=== PATIENT | female | born 1985 | race Caucasian/White ===

== ENCOUNTER 2023-06-12 20:03 | Emergency (ER) | payer OTHER, SELFPAY ==
[2023-06-12 20:30] VITALS: BP 148/83; PULSE 99; TEMP 37; O2SAT 95; BMI 50.1
--- NOTE | 2023-06-12 20:41 | ED_ITS ---
HPI - Abdominal Pain General Chief Complaint: Abdominal Pain Stated Complaint: Constipation Time Seen by Provider: 06/12/23 20:17 Source: patient Mode of arrival: walk-in Limitations: no limitations History of Present Illness HPI narrative: This 37-year-old female presents for evaluation of constipation. She states she has not been able to have a normal bowel movement in approximately one week. She has generalized abdominal discomfort and rectal pressure. She did use some milk of magnesia earlier in the week with a small amount of to produce. She has not had any nausea or vomiting. Her appetite is been normal. She is not having any trouble urinating. She denies the possibility of . She is not on any GLP/Semiglutide weight loss medications or narcotic medications. She does admit that her appetite is poor and she eats a lot of fast food and at times forgets to eat at all. Related Data Home Medications ?Medication ?Instructions ?Recorded ?Confirmed No Known Home Medications 06/12/23 06/12/23 Allergies Allergy/AdvReac Type Severity Reaction Status Date / Time No Known Drug Allergies Allergy Verified 06/12/23 20:35 Review of Systems ROS Status of ROS 10 or more systems reviewed and unremark able except as noted in history and below Exam Narrative Exam Narrative: Nurses note and vital signs reviewed and patient is not hypoxic. Blood pressure is noted to be elevated at 140/83 and pulse is elevated at 99 General: Alert, nontoxic, overweight female resting comfortably on the stretcher, no respiratory distress Skin: Warm, dry, no pallor noted. There is no rash noted. Head: Normocephalic, atraumatic Eye: Normal conjunctiva, no drainage, EOMI. PERRL Ears, Nose, Mouth, and Throat: oral mucosa is moist. Cardiovascular: Regular Rate and [id number], no murmurs, rubs or gallops Respiratory: Patient is in no distress, no accessory muscle use, lungs are clear to auscultation, no wheezing, rales or rhonchi Back: non-tender, no CVA tenderness bilaterally to percussion. GI: Obese, soft, nondistended, generalized abdominal tenderness with no rebound guarding rigidity, rectal exam performed with RN at bedside, rectum is full of soft brown stool, Small, nonthrombosed external hemorrhoid noted at the 6 o'clock position, no internal hemorrhoids appreciated Musculoskeletal: The patient has no evidence of calf tenderness, no pitting edema, symmetrical pulses noted bilaterally Neurological: A&O x4, normal speech Psychiatric: Cooperative Constitutional Vital Signs, click to edit/add: Last Vital Signs Temp 98.6 F 06/12/23 20:30 Pulse 99 H 06/12/23 20:30 Resp 18 06/12/23 20:30 BP 148/83 H 06/12/23 20:30 Pulse Ox 95 06/12/23 20:30 O2 Del Method Room Air 06/12/23 20:30 Course Vital Signs Vital signs: Vital Signs Temperature 98.6 F 06/12/23 20:30 Pulse Rate 99 H 06/12/23 20:30 Respiratory Rate 18 06/12/23 20:30 Blood Pressure 148/83 H 06/12/23 20:30 Pulse Oximetry 95 06/12/23 20:30 Oxygen Delivery Method Room Air 06/12/23 20:30 Temperature 98.6 F 06/12/23 20:30 Pulse Rate 99 H 06/12/23 20:30 Respiratory Rate 18 06/12/23 20:30 Blood Pressure 148/83 H 06/12/23 20:30 Pulse Oximetry 95 06/12/23 20:30 Oxygen Delivery Method Room Air 06/12/23 20:30 MDM - Abdominal Pain MDM Narrative Medical decision making narrative: This 37-year-old female presents for evaluation of one week of constipation with generalized abdominal pain. She is not having any nausea or vomiting. She has no urinary symptoms. She had taken milk of magnesia once and was passing gas but not having any bowel movements. Her rectum was full of soft stool. They showed no signs of obstruction or ileus. Surgilube was placed into her rectum to loosen up the ball of stool in her rectal vault and she was given a soapsuds enema with clinical improvement. On reevaluation she states she is feeling better. I suggested that she use Metamucil or MiraLAX on a daily basis will be discharged home with a prescription for Colace and a note for work for today. Medical Records Medical records narrative: The [address] [address] XRay Report Signed Patient: JOHNNY LANGE MR#: [id number] : 1985 Acct:[id number] Age/Sex: 37 / F ADM Date: 06/12/23 Loc: ER Attending Dr: Ordering Physician: Glenna Cavazos Date of Service: 06/12/23 Procedure(s): XR acute abdomen series Accession Number(s): [id number] cc: Glenna Cavazos; Physician,Non-Staff Negro~ The [place] [id number] Patient Name: JOHNNY LANGE MRN: [facility]:[id number] date: 1985 Sex: F Assigned Patient Location: ER Current Patient Location: ER Accession/Order Number: [id number] Exam Date: 06/12/2023 21:20 Report Date: 06/12/2023 21:37 At the request of: GLENNA CAVAZOS Procedure: XR acute abdomen series EXAM: XR acute abdomen series HISTORY: constipation COMPARISON: None. TECHNIQUE: Upright PA chest x-ray. Supine and upright abdominal x-ray/KUB. FINDINGS: Chest x-ray demonstrates cardiac prominence without infiltrate, abnormal lung density or pleural effusion. Abdominal films without distention or evidence of ileus or obstruction. Moderate to large amount of colonic stool most prominent in each flank. No free air. No air-fluid level. No soft tissue calcification. XR/XR acute abdomen series IMPRESSION: Chest x-ray without acute disease. Abdominal films without ileus or obstruction. Moderate to large amount of colonic stool most prominent in each flank, correlate for constipation. Discharge Plan Discharge Stand Alone Forms: Portal Instructions Chief Complaint: Abdominal Pain Clinical Impression: Constipation Patient Disposition: Home, Self-Care Time of Disposition Decision: 23:40 Condition: Good Prescriptions / Home Meds: No Action No Known Home Medications Print Language: Kyrgyz Instructions: Constipation (ED), High Fiber Diet (ED) Referrals: Physician,Non-Staff, MD [Primary Care Provider] - 1 week
--- NOTE | 2023-06-12 20:46 | XR_ITS ---
The [address] [address] Patient Name: JOHNNY LANGE MRN: [id number] date: 1985 Sex: F Assigned Patient Location: ER Current Patient Location: ER Accession/Order Number: [id number] Exam Date: 06/12/2023 21:20 Report Date: 06/12/2023 21:37 At the request of: GLENNA MARKER Procedure: XR acute abdomen series EXAM: XR acute abdomen series HISTORY: constipation COMPARISON: None. TECHNIQUE: Upright PA chest x-ray. Supine and upright abdominal x-ray/KUB. FINDINGS: Chest x-ray demonstrates cardiac prominence without infiltrate, abnormal lung density or pleural effusion. Abdominal films without distention or evidence of ileus or obstruction. Moderate to large amount of colonic stool most prominent in each flank. No free air. No air-fluid level. No soft tissue calcification. XR/XR acute abdomen series IMPRESSION: Chest x-ray without acute disease. Abdominal films without ileus or obstruction. Moderate to large amount of colonic stool most prominent in each flank, correlate for constipation. Electronically authenticated by: GABRIEL DUNLAP Date: 06/12/2023 21:37
[2023-06-12 23:50] VITALS: BP 132/88; PULSE 97; O2SAT 97
== END 2023-06-12 23:50 | disposition home or self-care (01) ==
PROVIDERS: Emergency Provider Emergency Medicine
DX: K59.00 Constipation, unspecified (principal)
CPT/HCPCS: 74022; 99283

== ENCOUNTER 2023-06-15 17:05 | Emergency (ER) | payer OTHER, SELFPAY ==
[2023-06-15 17:08] VITALS: BP 165/100; PULSE 99; TEMP 37; O2SAT 95; BMI 36.0
--- NOTE | 2023-06-15 17:36 | ED_ITS ---
HPI - Abdominal Pain General Chief Complaint: Abdominal Pain Stated Complaint: CONSTIPATION/ABDOMINAL PAIN Time Seen by Provider: 06/15/23 17:15 Source: patient Mode of arrival: walk-in Limitations: no limitations History of Present Illness HPI narrative: The patient is being evaluated today for rectal bleeding that she noticed after she recently was treated for possible constipation with magnesium citrate, she m entioned that today she started having some liquid stool and when she was straining in the bathroom she felt some blood when she was wiping, the patient is denying any abdominal pain, the patient have no other concerns and she mentioned that the constipation started almost a week ago. Before that she usually have a regular bowel movement. No nausea no vomiting Related Data Previous Rx's ?Medication ?Instructions ?Recorded hydrocortisone acetate 25 mg 25 mg TN Q12H PRN hemorrhoids #12 06/15/23 rectal suppository (Anusol-HC) ea lidocaine 5 % topical cream 1 applic topical QID PRN rectal 06/15/23 (RectiCare) pain #15 grams Allergies Allergy/AdvReac Type Severity Reaction Status Date / Time No Known Drug Allergies Allergy Verified 06/12/23 20:35 Review of Systems ROS Status of ROS 10 or more systems reviewed and unremark able except as noted in history and below Exam Narrative Exam Narrative: Nurses notes and vital signs reviewed and patient is not hypoxic. General: Well-appearing and in no apparent distress. Skin: Warm, dry, no pallor noted. No rash. Head: Normocephalic, atraumatic. Neck: Supple, non-tender. Eye: Pupils are equal, round and EOMI. No scleral icterus. Ears, Nose, Mouth, and Throat: TM are clear, no nasal mucosal hypertrophy. Oral mucosa is moist, no posterior oropharynx erythema, uvula is mid-line Cardiovascular: Regular Rate and Rhythm without murmur, gallop or rub. Respiratory: No accessory muscle use or respiratory distress. Lungs are clear to auscultation, no wheezing, rales or rhonchi Chest Wall: no tenderness Back: No midline thoracic or lumbar vertebral tenderness. No CVA tenderness Musculoskeletal: normal ROM, no calf or popliteal tenderness, no lower extremity edema/swelling GI: Abdomen is soft, non-distended. Normal bowel sounds. The patient rectal examination showed that she have some external hemorrhoid at 6:00 that is inflamed but not bleeding there was old blood in the area but there is no active bleeding No masses appreciated. No tenderness to palpation. No rebound, guarding, or rigidity noted. Neurological: A&O x4. No cranial nerve dysfunction observed. No truncal ataxia. Moves all extremities. Sensation intact. Psychiatric: Cooperative and interactive. Normal mood and affect. Constitutional Vital Signs, click to edit/add: Last Vital Signs Temp 98.6 F 06/15/23 17:08 Pulse 99 H 06/15/23 17:08 Resp 22 H 06/15/23 17:08 BP 165/100 H 06/15/23 17:08 Pulse Ox 95 06/15/23 17:08 Course Vital Signs Vital signs: Vital Signs Temperature 98.6 F 06/15/23 17:08 Pulse Rate 99 H 06/15/23 17:08 Respiratory Rate 22 H 06/15/23 17:08 Blood Pressure 165/100 H 06/15/23 17:08 Pulse Oximetry 95 06/15/23 17:08 Temperature 98.6 F 06/15/23 17:08 Pulse Rate 99 H 06/15/23 17:08 Respiratory Rate 22 H 06/15/23 17:08 Blood Pressure 165/100 H 06/15/23 17:08 Pulse Oximetry 95 06/15/23 17:08 MDM - Abdominal Pain MDM Narrative Medical decision making narrative: The patient right now developed rectal bleeding mostly secondary to hemorrhoid and right now she was instructed to have local care with warm sitz bath in bren tion to Anusol and RectiCare. The patient to monitor her symptoms at home in case of increasing bleeding she is to come back to the ER. The patient was instructed about the proper hygiene while using the bathroom And the patient was instructed about the importance of warm sitz bath Patient referred to the primary care for follow-up and in case of any symptoms the patient to come back to the ER The patient is to follow up with primary care physician in next 2-3 days or to return to the emergency department should any of the signs or symptoms worsen or new symptoms develop. The patient agrees with the following Diagnosis and Treatment plan and the patient will be discharged home. Discharge Plan Discharge Stand Alone Forms: Portal Instructions Chief Complaint: Abdominal Pain Clinical Impression: Hemorrhoids Qualifiers: Hemorrhoid type: unspecified Qualified Code(s): K64.9 - Unspecified hemorrhoids Patient Disposition: Home, Self-Care Time of Disposition Decision: 17:39 Condition: Good Prescriptions / Home Meds: New hydrocortisone acetate [Anusol-HC] 25 mg suppository 25 mg TN Q12H PRN (Reason: hemorrhoids) Qty: 12 0RF lidocaine [RectiCare] 5 % cream 1 applic topical QID PRN (Reason: rectal pain ) Qty: 15 0RF Print Language: Albanian Instructions: Hemorrhoids (DC), Sitz Bath (DC) Referrals: Physician,Non-Staff, MD [Primary Care Provider] - 1 week
== END 2023-06-15 17:51 | disposition home or self-care (01) ==
PROVIDERS: Emergency Provider Emergency Medicine
DX: K64.9 Unspecified hemorrhoids (principal)
CPT/HCPCS: 99283

== ENCOUNTER 2023-06-16 06:37 | Emergency (ER) | payer OTHER, SELFPAY ==
[2023-06-16 06:39] VITALS: BP 154/109; PULSE 90; TEMP 36.8; O2SAT 96; BMI 36.0
[2023-06-16 07:30] LABS: Basophils Absolute Auto 0.1 10^3/uL (0.0-0.1); Basophils Percent Auto 0.7 % (0.2-2.0); Eosinophils Absolute Auto 0.3 10^3/uL (0.0-0.7); Eosinophils Percent Auto 1.9 % (0.9-7.0); Hematocrit 42.9 % (36.0-48.0); Hemoglobin 13.3 g/dL (12.0-16.0); Immature Granulocytes Abs Auto 0.05 10^3/uL (0.00-0.03); Immature Granulocytes Pct Auto 0.4 % (0.0-0.5); Lymphocytes Absolute Auto 3.1 10^3/uL (1.2-3.8); Lymphocytes Percent Auto 22.9 % (20.5-60.0); Mean Corpuscular Hemoglobin 28.4 pg (26.7-34.0); Mean Corpuscular Volume 91.7 fL (81.0-99.0); Mean Platelet Volume 10.9 fL (9.5-13.5); Monocytes Absolute Auto 1.3 10^3/uL (0.3-0.8); Monocytes Percent Auto 9.6 % (1.7-12.0); Neutrophils Absolute Auto 8.6 10^3/uL (1.4-6.5); Neutrophils Percent Auto 64.5 % (43.0-75.0); Platelet Count 339 10^3/uL (150-450); Red Blood Count 4.68 10^6/uL (4.20-5.40); Red Cell Distribution Width 13.7 % (11.0-15.0); White Blood Count 13.4 10^3/uL (4.0-11.0)
[2023-06-16 07:43] LABS: HCG Qualitative NEGATIVE (NEGATIVE)
[2023-06-16 07:47] LABS: Alanine Aminotransferase 36 U/L (14-59); Albumin Level 3.8 g/dL (3.4-5.0); Alkaline Phosphatase 89 U/L (46-116); Anion Gap 14.8; Aspartate Amino Transferase 22 U/L (15-37); BUN Creatinine Ratio 11.5; Bilirubin Total 0.7 mg/dL (0.2-1.0); Calcium 9.3 mg/dL (8.5-10.1); Chloride 101 mmol/L (98-107); Estimated GFR (African America >60 (>=60); Estimated GFR (Non-African Ame >60 (>=60); Globulin 3.8 g/dL; Glucose 116 mg/dL (74-106); Potassium 3.8 mmol/L (3.5-5.1); Sodium 141 mmol/L (136-145); Total Protein 7.6 g/dL (6.4-8.2)
--- NOTE | 2023-06-16 07:47 | CT_ITS ---
[address] [address] Patient Name: JOHNNY LANGE MRN: [id number] date: 1985 Sex: F Assigned Patient Location: ER Current Patient Location: ER Accession/Order Number: [id number] Exam Date: 06/16/2023 08:00 Report Date: 06/16/2023 08:37 At the request of: MADONNA PINEDA Procedure: CT abdomen pelvis wo con CT abdomen pelvis wo con, 06/16/2023 8:00 AM EDT INDICATION: Constipation COMPARISON: No prior CT the abdomen and pelvis available for comparison at the time of this dictation TECHNIQUE: Axial images of the abdomen and pelvis were obtained without IV contrast. Multiplanar reformatted images were generated and reviewed as needed. Dose reduction techniques were achieved by using automated exposure control and/or adjustment of mA and/or kV according to patient size and/or use of iterative reconstruction technique. FINDINGS: No consolidation or effusion. Diffuse fatty infiltration within an enlarged liver. Gallbladder, pancreas, spleen and adrenals unremarkable on a noncontrast scan. 2 mm nonobstructing left renal calculus. No hydronephrosis. No ureteral or urinary bladder calculi. Uterus and adnexa grossly unremarkable on a noncontrast scan. No aortic aneurysm. Small sliding hiatal hernia. No bowel obstruction. Normal appendix. Sigmoid diverticulosis. Large amount of stool distending the rectal vault with circumferential rectal wall thickening and mild perirectal fat stranding. Prominent perirectal lymph nodes, the largest 9 mm short axis. No pneumatosis or pneumoperitoneum. No acute fracture. CT/CT abdomen pelvis wo con IMPRESSION: 1. Mild proctitis with large amount of stool distending the rectal vault. Adjacent perirectal lymphadenopathy likely reactive lymph nodes; however, neoplastic process cannot be completely excluded. 2. Sigmoid diverticulosis 3. Nonobstructing left nephrolithiasis. 4. Hepatomegaly with diffuse hepatic steatosis. Electronically authenticated by: JOAN PAEZ Date: 06/16/2023 08:37
--- NOTE | 2023-06-16 08:09 | ED.GENADUL1 ---
HPI HPI - General Adult General Chief complaint: GI Bleed Stated complaint: RECTAL BLEEDING Time Seen by Provider: 06/16/23 07:03 Source: patient Mode of arrival: walk-in Limitations: no limitations History of Present Illness HPI narrative: The patient is coming to the ER to be evaluated for the same problem that she was evaluated for yesterday, she does have a history of constipation that he came for a earlier this week and then yesterday she mentioned that she started having bowel movement and she has some blood in stool after she already took the magnesium citrate, the patient is complaining that she is having tenderness in her rectal area and she feels like she need to go to the bathroom all the time but whenever she goes to the bathroom she is having pain, the patient was not able to fill the prescription yesterday because the pharmacy was closed , she still finds some blood when she wipes after going to the bathroom and she is not able to strain due to pain. Related Data Previous Rx's ?Medication ?Instructions ?Recorded hydrocortisone acetate 25 mg 25 mg GA Q12H PRN hemorrhoids #12 06/15/23 rectal suppository (Anusol-HC) ea lidocaine 5 % topical cream 1 applic topical QID PRN rectal 06/15/23 (RectiCare) pain #15 grams bisacodyl 5 mg tablet,delayed 5 mg PO DAILY PRN constipation #10 06/16/23 release (Dulcolax (bisacodyl)) tabs cephalexin 500 mg capsule 500 mg PO TID 7 days #21 caps 06/16/23 ibuprofen 800 mg tablet 800 mg PO TID PRN pain #20 tabs 06/16/23 Allergies Allergy/AdvReac Type Severity Reaction Status Date / Time No Known Drug Allergies Allergy Verified 06/16/23 06:39 Opioid HPI Opioid Management Most Recent Opioid Data: Last Pain Scale 7 06/16/23 08:11 Last ED Pain Assessment 06/12/23 20:39 Last MAR Pain Assessment 06/16/23 08:11 Review of Systems ROS Status of ROS 10 or more systems reviewed and unremarkable except as noted in history and below Exam Narrative Exam Narrative: Nurses notes and vital signs reviewed and patient is not hypoxic. General: Well-appearing and in no apparent distress. Skin: Warm, dry, no pallor noted. No rash. Head: Normocephalic, atraumatic. Neck: Supple, non-tender. Eye: Pupils are equal, round and EOMI. No scleral icterus. Ears, Nose, Mouth, and Throat: TM are clear, no nasal mucosal hypertrophy. Oral mucosa is moist, no posterior oropharynx erythema, uvula is mid-line Cardiovascular: Regular Rate and Rhythm without murmur, gallop or rub. Respiratory: No accessory muscle use or respiratory distress. Lungs are clear to auscultation, no wheezing, rales or rhonchi Chest Wall: no tenderness Back: No midline thoracic or lumbar vertebral tenderness. No CVA tenderness Musculoskeletal: normal ROM, no calf or popliteal tenderness, no lower extremity edema/swelling rectal exam : The patient have a small hemorrhoid at the 6:00 tender, rectal examination showed that the patient have no induration at the rectal verge but she does have maceration around the buttock area and there is stool that is liquid in the area too. GI: Abdomen is soft, non-distended. Normal bowel sounds. No masses appreciated. No tenderness to palpation. No rebound, guarding, or rigidity noted. Neurological: A&O x4. No cranial nerve dysfunction observed. No truncal ataxia. Moves all extremities. Sensation intact. Psychiatric: Cooperative and interactive. Normal mood and affect. Constitutional Vital Signs, click to edit/add: Last Vital Signs Temp 98.3 F 06/16/23 06:39 Pulse 90 06/16/23 06:39 Resp 18 06/16/23 06:39 BP 154/109 H 06/16/23 06:39 Pulse Ox 96 06/16/23 06:39 O2 Del Method Room Air 06/16/23 06:39 Course Vital Signs Vital signs: Vital Signs Temperature 98.3 F 06/16/23 06:39 Pulse Rate 90 06/16/23 06:39 Respiratory Rate 18 06/16/23 06:39 Blood Pressure 154/109 H 06/16/23 06:39 Pulse Oximetry 96 06/16/23 06:39 Oxygen Delivery Method Room Air 06/16/23 06:39 Temperature 98.3 F 06/16/23 06:39 Pulse Rate 90 06/16/23 06:39 Respiratory Rate 18 06/16/23 06:39 Blood Pressure 154/109 H 06/16/23 06:39 Pulse Oximetry 96 06/16/23 06:39 Oxygen Delivery Method Room Air 06/16/23 06:39 Medical Decision Making MDM Narrative Medical decision making narrative: The patient was not able to fill the prescription that she was provided with yesterday she also mentioned that she does not have a bathtub. CBC and chemistry here showed no acute significant pathology mild leukocytosis that could be reactive the patient examination does not show any induration or any abscess concern CT of the abdomen shows possible proctitis The patient was provided with lidocaine Uro-Jet and then after that she had a enema applied to help make sure that the stool at the rectal verge will be evacuated. pt instructed about hygiene and keeping the area clean and dry after frequent sitz bath , and fact that the perirectal area already showing liquid stool on exam that need to be avoided ,pt to have caution and monitor for pain increase ,fever or any progression of her symptoms pt to come to ED . I could not appreciate anal fissure but there is a possibility there is small one.no rectal bleeding on exam Explained to the patient extensively the importance of hygiene in the area and keeping the area clean and dry Patient to see a primary care doctor within few days for reevaluation of the area as well in case of any symptoms to come back to the ER Lab Data Labs: Lab Results 06/16/23 Range/Units 07:19 WBC 13.4 H (4.0-11.0) 10^3/uL RBC 4.68 (4.20-5.40) 10^6/uL Hgb 13.3 (12.0-16.0) g/dL Hct 42.9 (36.0-48.0) % MCV 91.7 (81.0-99.0) fL MCH 28.4 (26.7-34.0) pg MCHC 31.0 (29.9-35.2) g/dL RDW 13.7 (11.0-15.0) % Plt Count 339 (150-450) 10^3/uL MPV 10.9 (9.5-13.5) fL Neut % (Auto) 64.5 (43.0-75.0) % Lymph % (Auto) 22.9 (20.5-60.0) % Ulster % (Auto) 9.6 (1.7-12.0) % Eos % (Auto) 1.9 (0.9-7.0) % Baso % (Auto) 0.7 (0.2-2.0) % Neut # (Auto) 8.6 H (1.4-6.5) 10^3/uL Lymph # (Auto) 3.1 (1.2-3.8) 10^3/uL [place]ster # (Auto) 1.3 H (0.3-0.8) 10^3/uL Eos # (Auto) 0.3 (0.0-0.7) 10^3/uL Baso # (Auto) 0.1 (0.0-0.1) 10^3/uL Abs Immat Gran (auto) 0.05 H (0.00-0.03) 10^3/uL Imm/Tot Granulo (auto) 0.4 (0.0-0.5) % Sodium 141 (136-145) mmol/L Potassium 3.8 (3.5-5.1) mmol/L Chloride 101 (98-107) mmol/L Carbon Dioxide 29.0 (21.0-32.0) mmol/L Anion Gap 14.8 BUN 9.0 (7.0-18.0) mg/dL Creatinine 0.78 (0.55-1.02) mg/dL Est GFR ( Amer) >60 (>=60) Est GFR (Non-Af Amer) >60 (>=60) BUN/Creatinine Ratio 11.5 Glucose 116 H (74-106) mg/dL Calcium 9.3 (8.5-10.1) mg/dL Total Bilirubin 0.7 (0.2-1.0) mg/dL AST 22 (15-37) U/L ALT 36 (14-59) U/L Alkaline Phosphatase 89 (46-116) U/L Total Protein 7.6 (6.4-8.2) g/dL Albumin 3.8 (3.4-5.0) g/dL Globulin 3.8 g/dL Albumin/Globulin Ratio 1.0 Serum HCG, Qual Negative (NEGATIVE) Discharge Plan Discharge Stand Alone Forms: Portal Instructions Chief Complaint: GI Bleed Clinical Impression: Acute proctitis Hemorrhoids Qualifiers: Hemorrhoid type: unspecified Qualified Code(s): K64.9 - Unspecified hemorrhoids Constipation Qualifiers: Constipation type: other constipation type Qualified Code(s): K59.09 - Other constipation Patient Disposition: Home, Self-Care Time of Disposition Decision: 08:52 Prescriptions / Home Meds: New cephalexin 500 mg capsule 500 mg PO TID 7 Days Qty: 21 0RF ibuprofen 800 mg tablet 800 mg PO TID PRN (Reason: pain) Qty: 20 0RF bisacodyl [Dulcolax (bisacodyl)] 5 mg tablet,delayed release (DR/EC) 5 mg PO DAILY PRN (Reason: constipation) Qty: 10 0RF No Action hydrocortisone acetate [Anusol-HC] 25 mg suppository 25 mg GA Q12H PRN (Reason: hemorrhoids) Qty: 12 0RF lidocaine [RectiCare] 5 % cream 1 applic topical QID PRN (Reason: rectal pain ) Qty: 15 0RF Print Language: Ecuadorean Instructions: Hemorrhoids (DC), Sitz Bath (DC) Referrals: Physician,Non-Staff, MD [Primary Care Provider] - 1 week
[2023-06-16] MEDS: KETOROLAC TROMETHAMINE 30 MG/ML VIAL IVP (08:11)
[2023-06-16] MEDS: LIDOCAINE 2% JELLY 10 ML UR (09:03)
== END 2023-06-16 10:26 | disposition home or self-care (01) ==
PROVIDERS: Emergency Provider Emergency Medicine
DX: K62.89 Other specified diseases of anus and rectum (principal)
CPT/HCPCS: 36415; 74176; 80053; 84703; 85025; 96374; 99284